=== PATIENT | female | born 1985 | race Caucasian/White ===

== ENCOUNTER 2017-05-22 20:07 | Emergency (ER) | payer OTHER ==
[~2017-05-22] VITALS: Ht 160 cm; Wt 65.9 kg
[2017-05-22 20:18] VITALS: BP 112/70; PULSE 80; RESP 18; O2SAT 96
--- NOTE | 2017-05-22 23:13 | ED.REPORT ---
HPI-General Illness Date of Service May 22, 2017 ED Provider: Jamie Estes MD Patient is a 31 year old female with a hx of dental issues and hyperlipidemia who presents to the ED complaining of tooth pain in her upper, left molar onset 3 days ago. She reports that laying down or sitting exacerbates her pain. Associated symptoms include L ear pain. She denies fever, chills, vomiting, headache, vision changes, or any other symptoms. Nursing Notes Stated Complaint: TOOTHACHE Chief Complaint: Dental Nursing Notes Reviewed: Yes Allergies: Coded Allergies: latex (Verified Allergy, 02/02/11) General Time Seen by MD: 23:13 Chief Complaint Other (tooth pain) Hx Obtained From: Patient Arrived By: Walk-in Sudden in Onset?: Yes Onset Occurred: 3 days ago Symptom Duration: Since onset Location: : Ear left: Mouth Severity: Current: Pain level 10 out of 10 Severity: Maximum: Pain level 10 out of 10 Pertinent Negative: Pt denies other symptoms Relieved by: Remaining still (standing up ) Past Medical History Past Medical History dental isues Reports: Hyperlipidemia Past Surgical History None reported Smoking History Unknown if Ever Smoker Social History Other Social History: Good social support Ambulatory Status Independent Review of Systems Full Review of Systems Constitutional: Denies: Chills, Fever Ears / Nose / Throat: Reports: Earache left, Toothache GI: Denies: Vomiting Neurologic: Denies: Headache, Vision change Complete sys rev & neg: except as marked. Physical Exam Nursing note and vitals reviewed. Constitutional: Well-developed, well-nourished. Not diaphoretic. Head: Normocephalic and atraumatic. TM's clear bilaterally. No facial swelling. Mouth/Throat: Oropharynx is clear and moist. No oropharyngeal exudate. No obvious abscess. Eyes: EOM are normal. Pupils are equal, round, and reactive to light. Neck: Supple, no tracheal deviation. Cardiovascular: Normal rate, regular rhythm. Equal and intact distal pulses throughout. Pulmonary/Chest: Effort normal and breath sounds normal. No respiratory distress. Abdominal: Soft. No distension. There is no tenderness, rebound, or guarding. Bowel sounds present. Musculoskeletal: Range of motion grossly intact, moving all extremities. Neurological: AOx3. Grossly nonfocal exam. Strength and sensation intact and equal to bilateral upper and lower extremities. Skin: Warm and dry, no rashes or pallor appreciated. Psychiatric: Appropriate mood and affect. Behavior appears normal. Vital Signs Vital Signs Date Time Temp Pulse Resp B/P Pulse Ox O2 Delivery O2 Flow Rate FiO2 05/23/17 00:17 37.1 83 14 115/73 96 Room Air 05/22/17 20:18 37.1 80 18 112/70 96 Re-Eval/Medical Decision Med Decision/Clinical Course Afebrile, nontoxic appearing. No facial swelling. No signs of systemic illness. Plan antibiotics, pain medication for breakthrough pain, careful return precautions, dentistry follow-up on Wednesday. Time of Eval: 23:40 Re-Evaluation/Progress Note: Discussed plan for discharge. Patient understands and agrees with plan. All questions addressed at this time. Counseled Regarding: Diagnosis, Need for follow-up, When/why to return to ED Discharge & Departure Primary Impression: Toothache Disposition: Home Discharge Condition All VS Reviewed: Yes Condition: Stable Additional Instructions: Thank you for entrusting us with your care. I do not think you have a dangerous infection at this time. Take the full course of antibiotics as prescribed. You should start to feel better within a day or two. Take Ibuprofen as needed for pain (up to 800mg, 3x a day) and Garita for extreme pain. Do not drink alcohol, drive, operate machinery, take acetaminophen, or take care of small children while taking Garita. Call your dentist Wednesday morning to schedule a follow up appointment. Return to the emergency department if you experience fever, headache, vision changes, or any other symptoms. Referrals: [facility] CLAUDINE ANDERSON (PCP) Scribe Attestation Portions of this note were transcribed by Jessenia Ocasio. I, Dr. Estes personally performed the history, physical exam and medical decision-making; I reviewed and confirmed the accuracy of the information in the transcribed note. Signed by: Jessenia Ocasio 05/22/17, 0687 copies to: [facility] ANDERSON William B MD May 22, 2017 23:13 JESSENIA OCASIO May 22, 2017 23:40
[2017-05-22] MEDS ORDERED: _HYDROcodone/APAP 5-325 mg Tablet PO PRN ×2 (23:50)
[2017-05-23 00:17] VITALS: BP 115/73; PULSE 83; RESP 14; O2SAT 96
[2017-05-23] MEDS ORDERED: _Amoxicillin-Clavulanate 875-125 mg Tablet PO SCH (08:30)
[2017-05-23] MEDS ORDERED: _Amoxicillin 500 mg Capsule PO SCH (08:30)
== END 2017-05-23 00:18 | disposition home or self-care (01) ==
LOC: SED 20:07
DX: K08.89 Other specified disorders of teeth and supporting structures (principal); E78.5 Hyperlipidemia, unspecified; Z91.040 Latex allergy status